=== PATIENT | female | born 2000 ===

== ENCOUNTER 2022-03-14 14:00 | Emergency (ER) | payer MEDICAID, OTHER ==
[~2022-03-14] VITALS: Ht 157.5 cm; Wt 150.0 kg
[2022-03-14] MEDS ORDERED: FLUORESCEIN SOD OPTH TEST STRIP LEFTEYE ONE (16:15)
[2022-03-14] MEDS ORDERED: TETRACAINE HCL 0.5% OPTH(EYE) SOLN 4ML LEFTEYE ONE (16:15)
[2022-03-14 19:08] VITALS: BP 124/80
== END 2022-03-14 17:00 | disposition home or self-care (01) ==
LOC: EDBD 14:00 → ER 14:00
DX: G43.909 Migraine, unspecified, not intractable, without status migrainosus (principal)
CPT/HCPCS: 70450